=== PATIENT | female | born 1950 | race Caucasian/White ===

== ENCOUNTER → 2018-07-17 | Outpatient (CLI) | payer OTHER ==
--- NOTE | 2018-07-17 22:48 | MR ---
MRI CERVICAL SPINE: CLINICAL HISTORY: Right-sided Occipital neuralgia per order. Headaches per patient. TECHNIQUE: Multiplanar, multisequence imaging of the cervical spine is performed without and with IV contrast, 6.5 cc of gadolinium was given intravenously. COMPARISON: None. FINDINGS: Sagittal images of the cervical spine show the craniocervical junction to appear within nor mal limits. The cervical and upper thoracic spinal cord is normal in course, caliber, and signal. V ertebral alignment is anatomic. There is mild disc space narrowing with mild to moderate anterior sp urring at C6-C7 level. The vertebral body and intravertebral disk heights otherwise are normal. No l arge posterior disc herniations are seen on sagittal images. Some heterogeneity of bone marrow signal intensity is seen. No suspicious enhancement is noted. Vague osseous lesion C6 level favors hemangio ma. Axial images show the C2-C3, C3-C4, hand C4-C5 levels all to appear within normal limits. Axial images at C5-C6 level shows central disc protrusion effacing the anterior thecal sac on axial i mage 22, bilateral neural foramina are patent. Axial images at C6-C7 level show a broad-based left paracentral disc protrusion effacing the anterola teral thecal sac on axial image 15, bilateral neural foramina are patent. Axial images at C7-T1 level are within normal limits. Thyroid gland felt within normal limits. IMPRESSION: Some degenerative changes at C5-C6 and C6-C7 level as detailed above.. No suspicious enha ncement noted.
== END | disposition home or self-care (01) ==
LOC: RADMRIMAIN 10:00
PROVIDERS: ATTEND Psychiatry & Neurology Neurology
DX: M47.812 Spondylosis without myelopathy or radiculopathy, cervical region (principal); M54.81 Occipital neuralgia; Z13.89 Encounter for screening for other disorder
CPT/HCPCS: 82565; 72156; 36415; A9585